=== PATIENT | male | born 1985 | race Caucasian/White ===

== ENCOUNTER 2019-03-19 07:21 | Day surgery (SDC) | payer OTHER ==
[~2019-03-19] VITALS: Ht 172.7 cm; Wt 79.7 kg
[2019-03-19] MEDS ORDERED: VALTREX 50500 MG/TAB PO (07:33)
[2019-03-19 07:41] VITALS: PULSE 58; TEMP 97.9
[2019-03-19 08:55] VITALS: BP 122/95; PULSE 53; TEMP 98.4
--- NOTE | 2019-03-19 08:55 | NUR ---
The patient arrived back to [facility] at this time. The patient appears alert and oriented and ambulated from the cart to the recliner in his room with the stand by assistance of two nurses and appeared to tolerate the activity well. Post procedure vital signs were started at this time. The patient requests to try some orange juice. Call light is within reach. Will continue to monitor the patient.
[2019-03-19] MEDS ORDERED: PREPARATIO1 SUPP.REC RC (09:05)
[2019-03-19] MEDS ORDERED: LEADER FIBER1 POW PO (09:06)
[2019-03-19 09:10] VITALS: BP 117/89; PULSE 57
--- NOTE | 2019-03-19 09:10 | NUR ---
The patient appeared to tolerat the orange juice well and now requests to try some toast, vanilla pudding and more orange juice. The patient is going to call his to come pick him up. Vital signs appear stable. Will continue to monitor the patient.
[2019-03-19 09:30] VITALS: BP 121/91; PULSE 58
--- NOTE | 2019-03-19 09:30 | NUR ---
Dr. Harvey is at the patient bedside speaking with him and his regarding the findings of the procedure. Will continue to monitor the patient.
[2019-03-19 09:40] VITALS: BP 120/98; PULSE 57
--- NOTE | 2019-03-19 09:45 | NUR ---
Discharge instructions were reviewed with the patient and his at this time. They both verbalized understanding and have no questions for the nurse at this time. The patient's IV to his right hand was removed and a pressure dressing was applied to the site. The nurse instructed the patient to get dressed and notify the staff when he is ready to be escorted out.
--- NOTE | 2019-03-19 09:58 | NUR ---
The patient was escorted out via ambulation to a private vehicle by KARRIE Page. The patient's belongings and discharge paperwork were sent with him. The patient's is present to drive him home.
== END 2019-03-19 09:58 | disposition home or self-care (01) ==
LOC: SDCO 07:21
DX: K64.0 First degree hemorrhoids (principal); K64.4 Residual hemorrhoidal skin tags; Z80.0 Family history of malignant neoplasm of digestive organs; K58.9 Irritable bowel syndrome, unspecified; Z88.2 Allergy status to sulfonamides
CPT/HCPCS: J2250; J3010; J7030